=== PATIENT | female | born 1950 | race Caucasian/White ===

== ENCOUNTER → 2016-12-26 | Outpatient (CLI) | payer BC ==
[~2016-12-26] MED LIST: ACETAMINOPHEN500 M7 PO; ALBUTEROL20 ml; ATORVASTATIN CA10 MG PO; BENADRYL25 M3 PO; GABAPENTIN300 M2 PO; METFORMIN; MUCINEX FAST-M1 EAC1 PO; MULTI-VITAMIN1 EAC1 PO; NORVASC2.5 MG PO; TYLENOL325 M1 PO; VITAMIN C1000 M2 PO
--- NOTE | ~2016-12-26 | CT2 ---
[facility] A Service of [facility] & [facility] RADIOLOGY TEXT RESULTS PATIENT: SYLVIA TRUJILLO LOCATION: [facility] : 46 UNIT #: [id number] AGE: [address]: Katia Zamora APRN SEX: F ORDER DR: [id number] [address] [address] [id number] O MR#: [id number] Acc #: [id number] NAME: SYLVIA TRUJILLO : 1950 SEX: F STUDY DATE/TIME: 12/26/2016 17:28 UNIT: [facility] ROOM: STUDY DESCRIPTION: CT Abd and Pelv W Cont Attending Physician: Katia Zamora A.P.R.N. Referring Physician: Katia Zamora A.P.R.N. Ordering Physician: Katia Zamora A.P.R.N. Primary Care Physician: Yuliya Rodriguez M.D. MEDICAL IMAGING REPORT This report is preliminary unless electronic signature is present. EXAM CT of the abdomen and pelvis with IV contrast media HISTORY Abdominal aortic aneurysm evaluation. Complains of low back pain radiating to legs. TECHNIQUE Axial imaging of the abdomen and pelvis was performed with IV contrast media. This CT examination was performed with one or more of the following radiation dose reduction techniques: automatic exposure control, adjustment of mA and/or kV according to patient size, and iterative reconstruction. FINDINGS Lung bases show underlying emphysema. There are calcified pulmonary nodules in the right lower lobe peripherally. There is diffuse atherosclerotic disease at the bases with extensive coronary artery calcifications. Thoracic aorta is tortuous. Scans through the liver parenchyma do no show any focal liver lesions. The gallbladder is absent. There is intrahepatic and mild extrahepatic biliary dilatation. The common duct measures 1.5 cm in diameter. Spleen is of normal size and the adrenal glands are not enlarged. The pancreas is unremarkable. There are simple cysts in the left kidney. No solid renal masses are identified. The patient has a fusiform infrarenal abdominal aortic aneurysm with a maximal diameter of 5.2 cm. There is extensive mural thrombus in the more inferior aspect of the aneurysm. The aneurysm begins approximately 8 mm below the left renal artery origin. Diffuse atherosclerotic disease is present in the aorta and within the renal arteries proper. There is diffuse atherosclerotic disease in the SMA and celiac axes. Both of these are narrowed at the origins. The JESSE is not identified and presumably is occluded. No dilated or thickened loops of bowel are identified. The aneurysm terminates at the aortic bifurcation. There is severe STS. [facility] A Service of [facility] RADIOLOGY TEXT RESULTS PATIENT: SYLVIA TRUJILLO LOCATION: [facility] : 46 UNIT #: [id number] AGE: [address]: Katia Zamora SEAMING MACHINE OPERATOR SEX: F ORDER DR: atherosclerotic disease in the common iliac arteries. Question is raised of a mass within the cecum. This may be artifactual and related to adjacent compression. It is just below the ileocecal valve. The appendix is not clearly identified. There is extensive diverticulosis throughout the colon particularly in the descending and sigmoid colons. Uterus is apparently absent. Bladder is unremarkable. I do not see any other adnexal masses or fluid collections. There is advanced degenerative disc disease in the lumbar spine particularly at L4-5 and L5-S1. No lytic or blastic lesions are seen. CONCLUSION 1. Advanced emphysematous lung disease. 2. Advanced atherosclerotic disease. 3. Infrarenal abdominal aortic aneurysm beginning 7-8 mm below the left renal artery origin and extending to the aortic bifurcation. The aneurysm extends over 13 cm with a maximal diameter of 5.2 cm. There is significant mural thrombus present. 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 4. Status post cholecystectomy, hysterectomy. 5. Intra- and extrahepatic biliary dilatation. Common duct measures about 1.5 cm in greatest diameter. 6. Question is raised of a circumferential mass in the cecum. This is at or just below the level of the ileocecal valve. Suggest this be further evaluated endoscopically. 7. Extensive colonic diverticulosis without evidence of diverticulitis. 8. Multilevel degenerative disc disease. Dictated by... Ramakrishna Robledo M.D. THIS IS AN ELECTRONICALLY VERIFIED REPORT Ramakrishna Robledo M.D. at 12/28/2016 7:25 AM JUSTINO/carla TD: 12/27/2016 08:19 JOB #: [id number] MEDICAL IMAGING REPORT Page 1 of 1
[2016-12-26 16:01] LABS: POC - CREATININE 0.85 mg/dL (0.44-1.03); POC - GFR >60.0 mL/min (>60)
== END | disposition home or self-care (01) ==
LOC: SCT 15:55
PROVIDERS: Nurse Practitioner
DX: I71.4 Abdominal aortic aneurysm, without rupture (principal); J43.9 Emphysema, unspecified; I70.90 Unspecified atherosclerosis; K83.8 Other specified diseases of biliary tract; K57.30 Diverticulosis of large intestine without perforation or abscess without bleeding; M51.36 Other intervertebral disc degeneration, lumbar region
CPT/HCPCS: 74177; 82565; Q9967

== ENCOUNTER → 2017-02-07 | Outpatient (CLI) | payer BC ==
--- NOTE | ~2017-02-07 | ST ---
Unit #: [id number] #: [id number] Patient: SYLVIA TRUJILLO [id number] [address] [address] [id number] O MR#: [id number] NAME: YSLVIA TRUJILLO. : 1950 SEX: F STUDY DATE/TIME: 02/07/2017 UNIT: CN ROOM: STUDY DESCRIPTION: Stress test Attending Physician: Juan Carlos Ortega M.D. Referring Physician: Juan Carlos Ortega M.D. Primary Care Physician: Yuliya Rodriguez M.D. CARDIOLOGY REPORT EXAM Stress test. FINDINGS Result text under nuclear order number. Please see this order for result text. Dictated by... Erlinda Gomez/santos TD: 02/08/2017 08:23 JOB #: [id number] CARDIOLOGY REPORT Page 1 of 1 X Missael Flores MD CARDIOLOGY REPORT
--- NOTE | ~2017-02-07 | TH ---
Unit #: [id number] #: [id number] Patient: SYLVIA TRUJILLO [id number] [address] [address] [id number] O MR#: [id number] NAME: SYLVIA TRUJILLO. : 1950 SEX: F STUDY DATE/TIME: 02/07/2017 UNIT: [facility] ROOM: STUDY DESCRIPTION: Nuclear study Attending Physician: Juan Carlos Ortega M.D. Referring Physician: Juan Carlos Ortega M.D. Primary Care Physician: Yuliya Rodriguez M.D. CARDIOLOGY REPORT EXAM Stress nuclear and ECG combined. INDICATION Preop abdominal aortic aneurysm, palpitations, shortness of breath, weakness, inability to exercise adequately with a history of hypertension, dyslipidemia, smoking and COPD. SUMMARY The patient was given Lexiscan intravenously while at rest. The patient developed shortness of breath and dizziness as well as chest burning. Heart rate increased from 84 to 99 and blood pressure decreased 151/97 to 143/88. The rest and stress ECG demonstrated no diagnostic ST shifts, no dysrhythmias and no heart block despite the symptoms. Tc-Cardiolite, 10.82 and 34.4 mCi, was injected at rest and stress respectively. Appropriate views were obtained. FINDINGS The rest and stress ECG showed no diagnostic ST shifts. The rest and stress perfusion images show normal perfusion throughout the myocardium with the exception of the intestinal artifact in the inferior wall mainly at stress. LV size is small. There is no significant patient motion noted during acquisition of the rest images, although the stress images show mild patient motion. There is no LV or RV enlargement and no increased lung uptake. Summed stress score is one. Summed difference score is one. Gated perfusion wall motion analysis demonstrates normal wall motion throughout the myocardium with end-diastolic volume 37 mL, ejection fraction greater than 65%. IMPRESSION 1. Myocardial perfusion scan shows no ischemia or infarction. 2. Normal wall motion with excellent ejection fraction. 3. Very small ventricle. 4. Nonspecific symptomatic changes. Dictated by... Missael Flores M.D. Gilberto TD: 02/08/2017 07:53 JOB #: [id number] Unit #: [id number] #: [id number] Patient: SYLVIA TRUJILLO CARDIOLOGY REPORT Page 1 of 1 X Missael Flores MD CARDIOLOGY REPORT
== END | disposition home or self-care (01) ==
LOC: CNUC 08:28
DX: Z01.810 Encounter for preprocedural cardiovascular examination (principal); I36.1 Nonrheumatic tricuspid (valve) insufficiency; I51.89 Other ill-defined heart diseases
CPT/HCPCS: 78452; 93017; 93306; A9500; J2785

== ENCOUNTER → 2017-02-08 | Day surgery (SDC) | payer BC ==
--- NOTE | ~2017-02-08 | OR ---
Unit #: [id number] #: [id number] Patient: SYLVIA TRUJILLO [id number] [address] [address] [id number] O MR#: [id number] NAME: SYLVIA TRUJILLO ROOM: Date of Procedure: 02/08/2017 Admission Date: 02/08/2017 Surgeon: Jose Maria Birch M.D. : 1950 Attending Physician: Fracisco Ortiz M.D. Primary Care Physician: Yuliya Rodriguez M.D. OPERATIVE REPORT PREOPERATIVE DIAGNOSES 1. Abdominal pain. 2. Abnormal CT scan with possible cecal neoplasm. 3. History of multiple colonic polyps. POSTOPERATIVE DIAGNOSES 1. Abdominal pain. 2. Abnormal CT scan with possible cecal neoplasm. 3. History of multiple colonic polyps. PROCEDURES PERFORMED 1. Colonoscopy to terminal ileum. 2. Polypectomy with electrocautery snare at hepatic flexure with submucosal tattoo of area and hemoclip placement at site. ANESTHESIA Monitored anesthesia care. FINDINGS The patient was found to have sigmoid diverticulosis. A sessile polyp was excised near the hepatic flexure. It was completely removed with electrocautery snare with good hemostasis, submucosally tattooed and the mucosa was reapproximated with hemoclip placement. SPECIMENS Sent to pathology. COMPLICATIONS None apparent. CONDITION The patient tolerated the procedure well. INDICATIONS FOR PROCEDURE The patient is a 66-year-old white female, who presents at this time for evaluation of her abdominal pain. In addition, the patient had multiple large polyps removed a year ago. She had a recent CT scan, which revealed a 5.2 cm aneurysm and a possible neoplasm in the area of the cecum. She presents at this time for evaluation by colonoscopy. It is notable that the patient has been seen by Dr. Marte, Vascular Surgery, for her aneurysm. Unit #: [id number] #: [id number] Patient: SYLVIA TRUJILLO DESCRIPTION OF PROCEDURE She was originally scheduled to have this performed by Dr. Fracisco Ortiz; however, he was occupied with an emergent procedure and we were asked to perform the procedure for the patient. After obtaining informed consent, the patient was brought to the endoscopy suite and after adequate monitored anesthesia care, had the colonoscope placed through the anus and advanced to the level of the cecum without difficulty with the lumen always in view. The cecum was normal as was the ileocecal valve. We were able to pass through the ileocecal valve into the terminal ileum, which was normal as well. The ascending colon was normal as was the proximal hepatic flexure. In the distal hepatic flexure, there was a sessile neoplasm seen. It was excised completely with the electrocautery snare, retrieved with a mucus trap, and sent to pathology. The area was submucosally tattooed and the mucosa was reapproximated with a hemoclip. There was good hemostasis. The remaining portion of the transverse colon, splenic flexure, and descending colon were normal. The sigmoid colon had sigmoid diverticulosis present. The rectosigmoid and rectum were all within normal limits. On retroflexing in the rectum to the anorectal junction, there was no obvious abnormality seen. The patient tolerated the procedure well and went from the endoscopy suite to recovery room in stable condition. RECOMMENDATIONS Diverticular sheet given. Call Dr. Ortiz on Sunday for pathology and to discuss results. Dictated by... Jose Maria Birch M.D. BRIAN/filiberto TD: 02/09/2017 01:26 JOB #: [id number] CC: Erlinda Landers M.D. [facility] OPERATIVE REPORT Page 1 of 1 X Jose Maria Birch MD X PROCEDURE OPERATIVE NOTE
== END | disposition home or self-care (01) ==
LOC: COPS 11:24
DX: D12.3 Benign neoplasm of transverse colon (principal); K57.30 Diverticulosis of large intestine without perforation or abscess without bleeding; J43.9 Emphysema, unspecified; M19.90 Unspecified osteoarthritis, unspecified site; J45.909 Unspecified asthma, uncomplicated; I10 Essential (primary) hypertension; E78.5 Hyperlipidemia, unspecified; F17.210 Nicotine dependence, cigarettes, uncomplicated; Z86.010 Personal history of colon polyps; Z88.2 Allergy status to sulfonamides; Z88.6 Allergy status to analgesic agent; Z79.899 Other long term (current) drug therapy; Z79.891 Long term (current) use of opiate analgesic; Z90.710 Acquired absence of both cervix and uterus; Z90.49 Acquired absence of other specified parts of digestive tract; Z98.51 Tubal ligation status; Z98.890 Other specified postprocedural states
CPT/HCPCS: 88305; J2250